=== PATIENT | male | born 1975 | race Caucasian/White ===

== ENCOUNTER 2025-05-10 08:00 | Outpatient (RCR) | payer OTHER, SELFPAY ==
[2025-03-27 14:59] VITALS: BP 131/78; PULSE 71; RESP 16; O2SAT 98; BMI 31.7
== END 2025-05-10 09:15 | disposition home or self-care (01) ==
PROVIDERS: PCP Family Medicine
DX: Z98.61 Coronary angioplasty status (principal)
CPT/HCPCS: 93798